=== PATIENT | female | born 1945 | race Caucasian/White ===

== ENCOUNTER 2018-03-21 05:14 | Emergency (ER) | payer MEDICARE ==
--- NOTE | 2018-03-21 05:43 | ED Physician Documentation ---
Abdominal Pain - HISTORIAN Historian: patient - HPI Stated Complaint: low abd/pelvic pain Chief Complaint: Abdominal Pain Onset: hours (3) Duration: waxing, waning Timing: other (on and off cramping) Context: other (they have been traveling and "on the move" for the last 4 days ) . denies: out of country travel, bad food, recent trauma Severity: moderate Quality: cramping, sharp Associated Symptoms: other (she does report a cramping type feeling and a urge to urinate with no ability to urinate ). denies: fever, chills, nausea, vomiting, sweating, loss of appetite, chest pain, back pain Exacerbated by: nothing Relieved by: nothing Further Comments: yes (She and at bedside report for the last 4 days they have been traveling and "on the move" she states she is sure she has not had as much fluid intake as she should have. She states this am she started with a RUQ abd pain and over the last hour the pain has moved around to the side and down into the groin/vaginal area with cramping sharp intense pain sensations with the urge to void and no ability to void. She denies any fever, no N/V/D. No other complaints. No visable blood in her urine No recently sexual activity) - ROS CONST: no problems GI/: problems urinating CVS/RESP: denies: palpitations, shortness of breath, hurts to breath, cough EYES/ENT: none MS/SKIN/LYMPH: none NEURO/PSYCH: none - SOCIAL HX Smoking History: non-smoker Alcohol Use: none Drug Use: none - FAMILY HX Family History: none - PAST HX Past History: none Ischemic Bowel Risk Factors: none Other History: other (HTN, Afib (controlled), hyperlipidemia ) Surgeries/Procedures: appendectomy Immunizations: UTD - REVIEWED ASSESSMENTS Nursing Assessment Reviewed: Yes Vitals Reviewed: Yes <Sharda Welch - Last Filed: 03/21/18 06:56> <REE PATEL - Last Filed: 03/21/18 08:21> - PAST HX Home Medications: Ambulatory Orders Medication Instructions Recorded Calcium Carbonate [Calcium] 500 mg PO D 03/21/18 Cholecalciferol (Vitamin D3) 5,000 unit PO D 03/21/18 [Vitamin D3] Cyclosporine [Restasis] 0.5 mg EACHEYE BID 03/21/18 Hydrochlorothiazide 12.5 mg PO D 03/21/18 [Hydrochlorothiazide] Metoprolol Succinate [Metoprolol 50 mg PO D 03/21/18 Succinate] [place]-3S/Dha/Epa/Fish Oil [Fish 1,200 mg PO BID 03/21/18 Oil 1,200 mg Softgel] Potassium Chloride [Potassium 10 meq PO D 03/21/18 Chloride] Rivaroxaban [Xarelto] 20 mg PO D 03/21/18 Rosuvastatin Calcium [Crestor] 10 mg PO D 03/21/18 Rosuvastatin Calcium [Rosuvastatin 10 mg PO D 03/21/18 Calcium] amLODIPine BESYLATE [Norvasc] 10 mg PO D 03/21/18 Allergies/Adverse Reactions: Allergies Allergy/AdvReac Type Severity Reaction Status Date / Time No Known Allergies Allergy Verified 03/21/18 05:26 - VITAL SIGNS Vital Signs: Vital Signs Temp Pulse Resp BP Pulse Ox 97.7 F 62 18 168/83 99 03/21/18 05:15 03/21/18 05:15 03/21/18 05:15 03/21/18 05:15 03/21/18 05:15 Progress <Sharda Welch - Last Filed: 03/21/18 06:56> <REE PATEL - Last Filed: 03/21/18 08:21> - Results/Orders Results/Orders: fluids infused, Oral K= given earlier. Comfortable. (REE PATEL) - Progress Progress: 0645: states pain is improved. DG 0657: results discussed. They would like to attempt to get home. CD will be given . Care handed off and pt aware DG (Sharda Welch) ED Results Lab/Radiology <Sharda Welch - Last Filed: 03/21/18 06:56> <REE PATEL - Last Filed: 03/21/18 08:21> - Lab Results Lab Results: Lab Results 03/21/18 03/21/18 03/21/18 06:03 06:03 06:03 WBC 6.10 K/ul K/ul (4.00-12.00) RBC 4.83 M/ul M/ul (3.90-5.20) Hgb 14.3 g/dL g/dL (12.0-16.0) Hct 41.7 % % (34.5-46.5) MCV 86.3 fl fl (80.0-100.0) MCH 29.7 pg pg (28.0-34.0) MCHC 34.4 g/dL g/dL (30.0-36.0) RDW 13.8 % % (11.3-14.3) Plt Count 257 K/mm3 K/mm3 (130-400) Neut % (Auto) 54.4 % % (39.0-79.0) Lymph % (Auto) 35.4 % % (16.0-50.0) Moody % (Auto) 4.7 % % (0.0-11.0) Eos % (Auto) 3.0 % % (0.0-6.8) Baso % (Auto) 0.7 (0.0-1.5) Neut # (Auto) 3.3 # k/uL # k/uL (1.4-7.7) Lymph # (Auto) 2.2 # k/uL # k/uL (0.6-4.0) Moody # (Auto) 0.3 # k/uL # k/uL (0.0-0.9) Eos # (Auto) 0.2 # k/uL # k/uL (0.0-0.6) Baso # (Auto) 0.0 # k/uL # k/uL (0.0-0.5) Reactive Lymphs % 1.9 % % (0.0-5.0) Reactive Lymphs # 0.1 # k/uL # k/uL (0.0-0.8) Sodium 144 mmol/L mmol/L (136-145) Potassium 2.9 mmol/L L mmol/L (3.5-5.1) Chloride 105 mmol/L mmol/L (98-107) Carbon Dioxide 25 mmol/L mmol/L (22-30) BUN 19 mg/dL H mg/dL (7-17) Creatinine 0.80 mg/dL mg/dL (0.52-1.04) Est GFR ( Amer) > 60 (60 - ) Est GFR (Non-Af Amer) > 60 (60 - ) Glucose 144 mg/dL H mg/dL (74-106) Calcium 10.5 mg/dL H mg/dL (8.4-10.2) Total Bilirubin 0.4 mg/dL mg/dL (0.2-1.3) AST 27 U/L U/L (15-46) ALT 28 U/L U/L (13-69) Alkaline Phosphatase 60 U/L U/L (38-126) Total Protein 8.4 g/dL H g/dL (6.3-8.2) Albumin 4.9 g/dL g/dL (3.5-5.0) Lipase 48 U/L U/L (23-300) Urine Color Urine Appearance Urine pH Ur Specific Nash Urine Protein Urine Ketones Urine Occult Blood Urine Nitrite Urine Bilirubin Urine Urobilinogen Ur Leukocyte Esterase Urine Glucose 03/21/18 05:20 WBC RBC Hgb Hct MCV MCH MCHC RDW Plt Count Neut % (Auto) Lymph % (Auto) Moody % (Auto) Eos % (Auto) Baso % (Auto) Neut # (Auto) Lymph # (Auto) Moody # (Auto) Eos # (Auto) Baso # (Auto) Reactive Lymphs % Reactive Lymphs # Sodium Potassium Chloride Carbon Dioxide BUN Creatinine Est GFR ( Amer) Est GFR (Non-Af Amer) Glucose Calcium Total Bilirubin AST ALT Alkaline Phosphatase Total Protein Albumin Lipase Urine Color Yellow (YELLOW) Urine Appearance Clear (CLEAR) Urine pH 7.0 (5.0 - 8.0) Ur Specific Nash 1.010 (1.010-1.030) Urine Protein Negative mg/dL mg/dL (NEGATIVE) Urine Ketones Negative mg/dL mg/dL (NEGATIVE) Urine Occult Blood Trace-lysed H (NEGATIVE) Urine Nitrite Negative (NEGATIVE) Urine Bilirubin Negative (NEGATIVE) Urine Urobilinogen 0.2 Eu Eu (0.2-1.0) Ur Leukocyte Esterase Trace H (NEGATIVE) Urine Glucose Negative mg/dL mg/dL (NEGATIVE) - Radiology Radiology Impressions: CT Abdomen/pelvis without contrast History: PT STATES LOWER RIGHT FLANK PAIN TODAY No comparison studies Dependent pleuroparenchymal changes at the lung bases. No free intraperitoneal air. Multilevel thoracolumbar spondylosis. Noncontrast liver spleen, right adrenal gland, pancreas are within normal limits. The left adrenal gland is nodular, may be due to an adenoma. Gallstone is noted. Right renal cyst is suggested. There is mild right hydronephrosis with an obstructing 7 mm calculus at the right ureterovesicular junction motion. Urinary bladder is distended. Fat containing right groin herpes is present. Small hiatal hernia. Sigmoid colon diverticula are present without evidence of diverticulitis. No bowel obstruction. Impression: 1. Right obstructive uropathy. Mild to moderate right hydronephroureterosis. There is an obstructing 7 mm calculus at the right ureterovesicular junction. Small right renal cyst. No left hydronephrosis. 2. Gallstone. No biliary dilatation. Right groin hernia contains fat. 3. Small hiatal hernia. Electronically signed on Mar 21, 2018 6:46:54 AM CDT by: Betty Jones (Sharda Welch) - Orders Orders: ED Orders Category Date Time Status Place IV Lock 1T Care 03/21/18 05:[address] ABD & PELVIS W/O CON Stat Exams 03/21/18 Completed CBC/PLATELET/DIFF Routine Lab 03/21/18 06:03 Completed CMP Routine Lab 03/21/18 06:03 Completed LIPASE Stat Lab 03/21/18 06:03 Completed UA MACRO DIP ONLY Routine Lab 03/21/18 05:20 Completed 0.9 % Sodium Chloride [Normal Saline] 1,000 ml Med 03/21/18 06:00 Ordered IV Q10H Ketorolac Tromethamine [Toradol] Med 03/21/18 05:48 Discontinued 30 mg IVP NOW ONE Pharmacy Song Med 03/21/18 06:37 Discontinued 1 each MC .STK-MED ONE Potassium Chloride 40 Meq/Ns [Potassium 40 Meq/Ns 1000 Med 03/21/18 06:38 Discontinued ml] 1,000 meq IV 1T ONE Potassium Chloride [Klor-Con M20] Med 03/21/18 06:46 Discontinued 40 meq PO NOW ONE EKG WITH COMPARISON Stat Ther 03/21/18 Completed Abdominal Pain Physical Exam - Physical Exam General Appearance: alert, mild distress EENT: eye inspection normal, ENT inspection normal NECK: normal inspection RESPIRATORY: no resp distress, chest non-tender, breath sounds normal CVS: reg rate & rhythm, heart sounds normal, equal pulses, no murmur ABDOMEN: soft, normal bowel sounds, no distension, tenderness (Right mid abdomen and bladder area with palpation ), guarding. No: rebound BACK: CVA tenderness (R) SKIN: warm/dry, normal color EXTREMITIES: non-tender, normal range of motion, no evidence of injury, no edema NEURO: oriented X3, CN's nml as tested, motor nml, sensation nml, mood/affect nml, cognition normal <Sharda Welch - Last Filed: 03/21/18 06:56> - Physical Exam Vital Signs: Vital Signs Temp Pulse Resp BP Pulse Ox 97.7 F 62 18 168/83 99 03/21/18 05:15 03/21/18 05:15 03/21/18 05:15 03/21/18 05:15 03/21/18 05:15 Discharge <Sharda Welch - Last Filed: 03/21/18 06:56> Decision to Admit: NO Decision Time: 08:18 <REE PATEL - Last Filed: 03/21/18 08:21> Clincal Impression: Kidney stone on right side Additional Instructions: You have a 7 mm kidney stone on the right, near your bladder. Stop at the nearest hospital if you develop fever or have pain you cannot control. Drink pleny of water. You can eat and drink as usual. Condition: Good Disposition: 01 HOME, SELF-CARE
[2018-03-21] MEDS ORDERED: KETOROLAC TROMETHAMINE 30 MG/1ML VIAL IVP ONE (05:48)
[2018-03-21] MEDS ORDERED: 0.9 % SODIUM CHLORIDE 1,000 ML IV SCH (06:00)
[2018-03-21 06:10] LABS: BASOPHILS % 0.7 (0.0-1.5); MEAN CORPUSCULAR HEMOGLOBIN 29.7 pg (28.0-34.0); MEAN CORPUSCULAR VOLUME 86.3 fl (80.0-100.0); MONOCYTES % 4.7 % (0.0-11.0); NEUTROPHILS # 3.3 # k/uL (1.4-7.7)
[2018-03-21] MEDS ORDERED: 0.9 % SODIUM CHLORIDE 1,000 ML IV ONE (06:16)
[2018-03-21 06:26] LABS: eGFR (African) > 60; eGFR (Non-African) > 60
[2018-03-21] MEDS ORDERED: PHARMACY KEY 1 EACH EACH MC ONE (06:37)
[2018-03-21] MEDS ORDERED: POTASSIUM CHLORIDE IV ONE (06:38)
[2018-03-21] MEDS ORDERED: POTASSIUM CHLORIDE 20 MEQ TABLET.ER PO ONE (06:46)
--- NOTE | 2018-03-21 06:51 | Diagnostic Imaging Report ---
[facility] [id number] [facility] [address] [place], [place]. [address] Report Submission Date: Mar 21, 2018 6:46:54 AM CDT Patient Study Name: CECELIA DARNELL Date: Mar 21, 2018 6:21:16 AM CDT Modality Type: CT\SR Gender: F Description: CT ABD PELVIS W/O CO : 47 Institution: [facility] Physician: REMBERTO MACK CT Abdomen/pelvis without contrast History: PT STATES LOWER RIGHT FLANK PAIN TODAY No comparison studies Dependent pleuroparenchymal changes at the lung bases. No free intraperitoneal air. Multilevel thoracolumbar spondylosis. Noncontrast liver spleen, right adrenal gland, pancreas are within normal limits. The left adrenal gland is nodular, may be due to an adenoma. Gallstone is noted. Right renal cyst is suggested. There is mild right hydronephrosis with an obstructing 7 mm calculus at the right ureterovesicular junction motion. Urinary bladder is distended. Fat containing right groin herpes is present. Small hiatal hernia. Sigmoid colon diverticula are present without evidence of diverticulitis. No bowel obstruction. Impression: 1. Right obstructive uropathy. Mild to moderate right hydronephroureterosis. There is an obstructing 7 mm calculus at the right ureterovesicular junction. Small right renal cyst. No left hydronephrosis. 2. Gallstone. No biliary dilatation. Right groin hernia contains fat. 3. Small hiatal hernia. Electronically signed on Mar 21, 2018 6:46:54 AM CDT by: Betty CARRILLO
[2018-03-21 07:38] LABS: APPEARANCE,URINE CLEAR (CLEAR); COLOR,URINE YELLOW (YELLOW); OCCULT BLOOD,URINE TRACE-LYSED (NEGATIVE); UROBILINOGEN URINE 0.2 Eu (0.2-1.0)
[2018-03-21 08:59] VITALS: BP 140/80
== END 2018-03-21 08:37 | disposition home or self-care (01) ==
LOC: ED 05:14
DX: N20.0 Calculus of kidney (principal)
CPT/HCPCS: 74176; 80053; 81002; 83690; 85025; 93005; A9270; J1885; J7030; 96365; 96366; 96375; 99285; S1016